=== PATIENT | male | born 1990 | race African-American/Black ===

== ENCOUNTER → 2018-02-15 | Day surgery (SDC) | payer MEDICAID ==
[~2018-02-15] VITALS: Ht 170.2 cm; Wt 65.8 kg
[~2018-02-15] MED LIST: ACETAMINOPHEN 325MG TABLET PO PRN; ALBU18HF2 IH; FENTANYL CITRATE/PF 50MCG/ML 2ML VIAL ONE; HEPARIN SODIUM 1,000 UNIT/1ML VIAL IV ONE; IODIXANOL 320MG/ML 100 ML BOTTLE IV ONE; LIDOCAINE HCL 1% 20ML VIAL (Pyxis) INJ ONE; MIDAZOLAM HCL 2 MG/2 ML VIAL ONE; MORPHINE SULFATE 2 MG/ML CPJ (NOT FOR IM USE) IV PRN; NICARDIPINE 100MCG/ML 10ML VIAL (CATH LAB) IV ONE; NITROGLYCERIN 50MCG/ML 10ML VIAL (CATH LAB) IV ONE; ONDANSETRON HCL 4MG/2ML INJ IV PRN; PARO-66 MT
[2018-02-15 09:14] LABS: HEMATOCRIT 48.1 % (42.0-52.0); HEMOGLOBIN 15.9 g/dL (14.0-18.0); MEAN CORPUSCULAR HEMOGLOBIN 31.7 pg (28.0-32.0); PLATELET 116 x1000/uL (130-400); RED BLOOD CELL COUNT 5.01 mill/uL (4.7-6.1)
[2018-02-15 11:47] LABS: BG BASE EXCESS -4.8 mmol/L (-2.0-2.0); BG CARBOXYHEMOGLOBIN 2.4 % (0.5-1.5); BG DEOXYHEMOGLOBIN 6.2 % (0.0-5.0); BG HCO3 ACT 19.5 mmol/L (22.0-26.0); BG METHEMOGLOBIN 0.3 % (0.0-1.5); BG OXYGEN SATURATION 93.6 % (92.0-98.5); BG OXYHEMOGLOBIN 91.1 % (94.0-97.0); BG PH 7.376 (7.350-7.450); BG PO2 69.2 mmHg (75.0-100.0); BG SAMPLE SITE A-LINE; BG TOTAL HEMOGLOBIN 14.6 g/dL (12.0-18.0); BG VENT MODE NASAL CANNULA
[2018-02-15 11:49] LABS: BG BASE EXCESS -5.3 mmol/L (-2.0-2.0); BG DEOXYHEMOGLOBIN 38.8 % (0.0-5.0); BG HCO3 ACT 19.8 mmol/L (22.0-26.0); BG METHEMOGLOBIN 0.1 % (0.0-1.5); BG OXYGEN SATURATION 60.4 % (92.0-98.5); BG OXYHEMOGLOBIN 59.1 % (94.0-97.0); BG PCO2 37.6 mmHg (35.0-45.0); BG PO2 35.3 mmHg (75.0-100.0); BG SAMPLE SITE PA LINE; BG TOTAL HEMOGLOBIN 14.3 g/dL (12.0-18.0); BG VENT MODE NASAL CANNULA
[2018-02-16 06:37] LABS: BG BASE EXCESS -3.4 mmol/L (-2.0-2.0); BG CARBOXYHEMOGLOBIN 2.4 % (0.5-1.5); BG DEOXYHEMOGLOBIN 35.7 % (0.0-5.0); BG HCO3 ACT 22.1 mmol/L (22.0-26.0); BG METHEMOGLOBIN 0.3 % (0.0-1.5); BG OXYGEN SATURATION 63.3 % (92.0-98.5); BG OXYHEMOGLOBIN 61.6 % (94.0-97.0); BG PCO2 41.5 mmHg (35.0-45.0); BG PH 7.345 (7.350-7.450); BG PO2 34.4 mmHg (75.0-100.0); BG SAMPLE SITE PA LINE; BG TOTAL HEMOGLOBIN 14.6 g/dL (12.0-18.0); BG VENT MODE NASAL CANNULA
== END | disposition home or self-care (01) ==
LOC: CCL 07:41
PROVIDERS: ATTEND Internal Medicine Cardiovascular Disease
DX: Q23.0 Congenital stenosis of aortic valve (principal); I77.1 Stricture of artery
CPT/HCPCS: 36415; 36600; 80048; 82375; 82805; 85027; 93005; 93460; C1769; C1887; J1644; J2250; J3010; J3490; Q9967; C1893

== ENCOUNTER → 2018-06-10 | Outpatient (CLI) | payer MEDICAID ==
[~2018-06-10] MED LIST changes: -ACETAMINOPHEN 325MG TABLET PO PRN; +CALC667C PO; -FENTANYL CITRATE/PF 50MCG/ML 2ML VIAL ONE; -HEPARIN SODIUM 1,000 UNIT/1ML VIAL IV ONE; -IODIXANOL 320MG/ML 100 ML BOTTLE IV ONE; -LIDOCAINE HCL 1% 20ML VIAL (Pyxis) INJ ONE; -MIDAZOLAM HCL 2 MG/2 ML VIAL ONE; -MORPHINE SULFATE 2 MG/ML CPJ (NOT FOR IM USE) IV PRN; -NICARDIPINE 100MCG/ML 10ML VIAL (CATH LAB) IV ONE; -NITROGLYCERIN 50MCG/ML 10ML VIAL (CATH LAB) IV ONE; -ONDANSETRON HCL 4MG/2ML INJ IV PRN; -PARO-66 MT; +PARO-66 PO
== END | disposition home or self-care (01) ==
LOC: LAB 12:54
PROVIDERS: ATTEND Thoracic Surgery (Cardiothoracic Vascular Surgery)
DX: I35.0 Nonrheumatic aortic (valve) stenosis (principal)
CPT/HCPCS: 36415; 86850; 86900